=== PATIENT | male | born 1945 | race Caucasian/White ===

== ENCOUNTER 2018-09-07 14:16 | Emergency (ER) | payer MEDICAID, MEDICARE, OTHER ==
[2018-09-07 14:16] VITALS: BMI 29.0
[2018-09-07 14:42] VITALS: TEMP 98.2
[2018-09-07 15:27] LABS: SQUAMOUS EPITHIAL < 1 /hpf (0-5); URINE BACTERIA RARE (<OCC); URINE BILIRUBIN NEGATIVE (NEGATIVE); URINE BLOOD 1+ (NEGATIVE); URINE CLARITY Clear (Clear); URINE COLOR Yellow (YELLOW); URINE GLUCOSE (UA) NORMAL (Normal); URINE LEUKOCYTE ESTERASE NEG Leu/uL (Negative); URINE PROTEIN NEGATIVE (NEGATIVE); URINE UROBILINOGEN NORMAL mg/dL (0.2-1.0)
[2018-09-07 15:40] LABS: BASO % 0.2 % (0.0-2.0); EOS % 0.4 % (0.0-4.0); HEMOGLOBIN 15.4 g/dL (12.0-18.0); LYMPH % 9.6 % (20.0-40.0); MEAN CELL VOLUME 90.9 fL (80.0-94.0); MEAN PLATELET VOLUME 8.9 fL (7.2-11.7); MONO # 0.8 K/uL (0.0-0.8); NEUT # 8.6 K/uL (1.8-7.0); NEUT % 81.8 % (50.0-75.0); PLATELET COUNT 160 K/uL (130-400); RBC 4.98 Mil/uL (4.40-5.90); RED CELL DISTRIBUTION WIDTH 13.5 % (11.5-14.5); WHITE BLOOD COUNT 10.5 K/uL (4.8-10.8)
[2018-09-07 15:51] LABS: ALB/GLOB RATIO 1.5 (1.0-2.1); ALBUMIN 4.7 g/dL (3.5-5.0); ALT/SGPT 24 U/L (21-72); AST/SGOT 25 U/L (17-59); BLOOD UREA NITROGEN 20 mg/dL (9-20); CALCIUM 9.5 mg/dl (8.6-10.4); GFR NON-AFRICAN AMERICAN > 60; LIPASE 114 U/L (23-300)
[2018-09-07 16:18] LABS: LYMPHOCYTE 7 % (20-40); MONOCYTE 6 % (0-10); NEUTROPHIL 87 % (50-75); TOTAL CELLS COUNTED 100
[2018-09-07 16:19] LABS: PLATELET ESTIMATE NORMAL (NORMAL)
--- NOTE | 2018-09-07 16:41 | C.PDOC ---
History Of Present Illness 72 y/o male presents to the ED complaining of suprapubic fullness, urinary frequency, and flank pain. Patient has a PMHx of BPH and elevated PSA. He denies any fever, chills, or other associated symptoms. No other complaints offered. Time Seen by Provider: 09/07/18 14:51 Chief Complaint (Nursing): Male Genitourinary History Per: Patient History/Exam Limitations: no limitations Onset/Duration Of Symptoms: Days Current Symptoms Are (Timing): Still Present Severity: Moderate Associated Symptoms: Urinary Symptoms Past Medical History Reviewed: Historical Data, Nursing Documentation, Vital Signs Vital Signs: Last Vital Signs Temp 98.2 F 09/07/18 14:35 Pulse 86 09/07/18 14:35 Resp 20 09/07/18 14:35 BP 173/100 H 09/07/18 14:35 Pulse Ox 99 09/07/18 14:35 - Medical History PMH: Benign Prostatic Hyperplasia, HTN Denies: Chronic Kidney Disease Other Surgeries: Right leg varicose surgery, Left varicose vein surgery Family History: States: Unknown Family Hx - Social History Hx Alcohol Use: No Hx Substance Use: No Review Of Systems Except As Marked, All Systems Reviewed And Found Negative. Constitutional: Negative for: Fever, Chills Cardiovascular: Negative for: Chest Pain Respiratory: Negative for: Shortness of Breath Gastrointestinal: Positive for: Other (Suprapubic fullness). Negative for: Vomiting, Diarrhea Genitourinary: Positive for: Dysuria, Frequency Musculoskeletal: Positive for: Other (Flank Pain) Skin: Negative for: Rash Neurological: Negative for: Weakness, Numbness Physical Exam - Physical Exam Appears: Non-toxic, No Acute Distress, Other (Elderly male) Skin: Warm, Dry, No Rash Head: Atraumatic, Normacephalic Eye(s): bilateral: Normal Inspection, PERRL, EOMI Neck: Normal ROM Chest: Symmetrical Cardiovascular: Rhythm Regular, No Murmur Respiratory: Normal Breath Sounds, No Accessory Muscle Use Gastrointestinal/Abdominal: Soft, Tenderness (Suprapubic fullness and tenderness, consistent w/ enlarged bladder), No Guarding, No Rebound Back: No CVA Tenderness, No Vertebral Tenderness Extremity: Bilateral: Atraumatic, Normal Color And Temperature Neurological/Psych: Oriented x3, Normal Speech ED Course And Treatment - Laboratory Results Result Diagrams: 09/07/18 15:37 09/07/18 15:37 Lab Results: Troponin I < 0.0120 ng/mL (0.00-0.120) 09/07/18 15:37 Total Bilirubin 0.8 mg/dL (0.2-1.3) 09/07/18 15:37 AST 25 U/L (17-59) 09/07/18 15:37 ALT 24 U/L (21-72) 09/07/18 15:37 Alkaline Phosphatase 90 U/L (38-126) 09/07/18 15:37 Total Protein 7.9 g/dL (6.3-8.3) 09/07/18 15:37 Albumin 4.7 g/dL (3.5-5.0) 09/07/18 15:37 Globulin 3.1 gm/dL (2.2-3.9) 09/07/18 15:37 Albumin/Globulin Ratio 1.5 (1.0-2.1) 09/07/18 15:37 Lipase 114 U/L (23-300) 09/07/18 15:37 Urine Color Yellow (YELLOW) 09/07/18 15:06 Urine Clarity Clear (Clear) 09/07/18 15:06 Urine pH 7.0 (5.0-8.0) 09/07/18 15:06 Ur Specific [place] 1.009 (1.003-1.030) 09/07/18 15:06 Urine Protein Negative mg/dL (NEGATIVE) 09/07/18 15:06 Urine Glucose (UA) Normal mg/dL (Normal) 09/07/18 15:06 Urine Ketones Negative mg/dL (NEGATIVE) 09/07/18 15:06 Urine Blood 1+ (NEGATIVE) H 09/07/18 15:06 Urine Nitrate Negative (NEGATIVE) 09/07/18 15:06 Urine Bilirubin Negative (NEGATIVE) 09/07/18 15:06 Urine Urobilinogen Normal mg/dL (0.2-1.0) 09/07/18 15:06 Ur Leukocyte Esterase Neg Aryan/uL (Negative) 09/07/18 15:06 Urine WBC (Auto) 2 /hpf (0-5) 09/07/18 15:06 Urine RBC (Auto) 6 /hpf (0-3) H 09/07/18 15:06 Ur Squamous Epith Cells < 1 /hpf (0-5) 09/07/18 15:06 Urine Bacteria Rare (<OCC) 09/07/18 15:06 O2 Sat by Pulse Oximetry: 99 (RA) Pulse Ox Interpretation: Normal - Other Rad obstructive series xr X-Ray: Read By Radiologist Interpretation: IMPRESSION: Constipation. Nonobstructive bowel gas pattern. Clear lungs. Reevaluation Time: 16:46 Reassessment Condition: Improved - Physician Consult Information Outcome Of Conversation: [id number]: d/w Dr. Rhodes- pt's Urologist. ok to d/c with leg bag and flomax BID Medical Decision Making Medical Decision Making: acute on chronic urinary retention overflow incontinence Disposition Doctor Will See Patient In The: Office Counseled Patient/Family Regarding: Studies Performed, Diagnosis - Disposition Referrals: [facility] [Outside] [email or web address] ([email or web address]) [facility] [Outside] [facility] [Outside] David Le MD [Staff Provider] - Disposition: HOME/ ROUTINE Disposition Time: 16:48 Condition: GOOD Additional Instructions: sigue con el leg bag puesto [place] gaines Flomax hasta DOS veces al casimiro Llama a Dr. Le para hacer piedad usualmente 1-2 semanas. Prescriptions: Tamsulosin [Flomax] 0.4 mg PO BID #60 cap Instructions: Urrutia Catheter, Male Forms: [facility] ([email or web address]) ([place]an) Print Language: NEPALESE - Clinical Impression Clinical Impression: Urinary retention - Scribe Statement The provider has reviewed the documentation as recorded by the Scribe Kendal Amador Provider Attestation: All medical record entries made by the Jcibe were at my direction and personally dictated by me. I have reviewed the chart and agree that the record accurately reflects my personal performance of the history, physical exam, medical decision making, and the department course for this patient. I have also personally directed, reviewed, and agree with the discharge instructions and disposition.
--- NOTE | 2018-09-07 16:42 | RAD ---
Date of service: 09/07/2018 PROCEDURE: Radiographs of the chest and abdomen (obstructive series) HISTORY: abd pain COMPARISON: No prior. TECHNIQUE: AP radiograph of the chest, with upright and supine radiographs of the abdomen. FINDINGS: CHEST: Lungs: The lungs are well inflated and clear. Cardiovascular: Normal size heart. No pulmonary vascular congestion. No aortic atherosclerotic calcification present Pleura: No pleural fluid. No pneumothorax. Other findings: None. ABDOMEN AND PELVIS: Bowel: There is large amount of stool in the colon. The small bowel loops are normal in caliber. No evidence of mechanical obstruction. Free air: None. Bones: Unremarkable. Other findings: None. IMPRESSION: Constipation. Nonobstructive bowel gas pattern. Clear lungs.
[2018-09-07 17:22] VITALS: BP 143/87; PULSE 82; RESP 18; O2SAT 100
--- NOTE | 2018-09-08 17:26 | CARD ---
APPROVED REPORT Date of service: 09/07/2018 EKG Measurement Heart [id number] <Conclusion> Normal sinus rhythm Biatrial enlargement Left anterior fascicular block Left ventricular hypertrophy with QRS widening Abnormal ECG
== END 2018-09-07 17:25 | disposition home or self-care (01) ==
LOC: C.ER 14:16
DX: R33.9 Retention of urine, unspecified (principal)
CPT/HCPCS: 51702; 74022; 80053; 81001; 83690; 84484; 85025; 93005; 96374; 99285; J1885

== ENCOUNTER 2018-09-11 11:09 | Emergency (ER) | payer MEDICAID | END 2018-09-11 13:21 | disposition home or self-care (01) | LOC: C.ER 11:09 ==

== ENCOUNTER 2018-09-20 10:41 | Emergency (ER) | payer MEDICAID ==
[2018-09-20 10:41] VITALS: BMI 29.0
[2018-09-20 10:57] VITALS: BP 127/82; PULSE 91; RESP 20; TEMP 98.4; O2SAT 99
--- NOTE | 2018-09-20 11:18 | C.PDOC ---
History Of Present Illness 72 year old male with PMHx of BPH and urinary retention status post indwelling catheter for one week presents to the ED complaining of leaky bag for the past few days. States he wrapped the end of the bag using a diaper to collect the urine. Denies any fever, chills, n/v/d, penil discharge, back pain, hematuria, or any other complaints. Time Seen by Provider: 09/20/18 11:05 Chief Complaint (Nursing): Lower Extremity Problem/Injury History Per: Patient History/Exam Limitations: no limitations Onset/Duration Of Symptoms: Days Current Symptoms Are (Timing): Still Present Associated Symptoms: denies: Fever, Chills, Nausea, Vomiting, Diarrhea, Back Pain, Chest Pain Past Medical History Reviewed: Historical Data, Nursing Documentation, Vital Signs Vital Signs: Last Vital Signs Temp 98.4 F 09/20/18 10:48 Pulse 91 H 09/20/18 10:48 Resp 20 09/20/18 10:48 BP 127/82 09/20/18 10:48 Pulse Ox 99 09/20/18 10:48 - Medical History PMH: Benign Prostatic Hyperplasia, HTN Denies: Chronic Kidney Disease Other Surgeries: Hx of surgeries Family History: States: No Known Family Hx - Social History Hx Tobacco Use: No Hx Alcohol Use: No Hx Substance Use: No - Immunization History Hx Tetanus Toxoid Vaccination: No Hx Influenza Vaccination: No Hx Pneumococcal Vaccination: No Review Of Systems Constitutional: Negative for: Fever, Chills Cardiovascular: Negative for: Chest Pain Respiratory: Negative for: Cough, Shortness of Breath Gastrointestinal: Negative for: Nausea, Vomiting, Abdominal Pain, Diarrhea Genitourinary: Negative for: Hematuria, Penile Discharge, Rash, Penile Pain Musculoskeletal: Negative for: Back Pain Skin: Negative for: Rash Neurological: Negative for: Weakness, Numbness Physical Exam - Physical Exam Appears: Non-toxic, No Acute Distress Skin: Warm, Dry Head: Normacephalic Eye(s): bilateral: PERRL, EOMI Oral Mucosa: Moist Neck: Supple Chest: Symmetrical Cardiovascular: Rhythm Regular Respiratory: No Rales, No Rhonchi, No Wheezing Gastrointestinal/Abdominal: Soft, No Tenderness Back: Normal Inspection, No CVA Tenderness Neurological/Psych: Oriented x3, Normal Speech Gait: Steady ED Course And Treatment O2 Sat by Pulse Oximetry: 99 (RA) Pulse Ox Interpretation: Normal Medical Decision Making Medical Decision Making: Plan - New catheter bag placement Bag was placed without difficulty. Patient tolerated procedure well. Instructed to follow up with Dr. Le. Patient verbalizes understanding and is in agreement with plan. Patient is stable for discharge. Disposition Counseled Patient/Family Regarding: Diagnosis, Need For Followup - Disposition Referrals: David Le MD [Staff Provider] - Disposition: HOME/ ROUTINE Disposition Time: 11:15 Condition: STABLE Additional Instructions: Follow up with Dr. Le regarding new catheter bag Continue home meds Return to ED if symptoms worsen Instructions: Urrutia Catheter, Male Forms: [facility] (Upper Sorbian) - Clinical Impression Clinical Impression: Indwelling Urrutia catheter present - PA / TORPEDO SHOOTER / Resident Statement MD/DO has reviewed & agrees with the documentation as recorded. - Scribe Statement The provider has reviewed the documentation as recorded by the Scribe Tiffany Carroll All medical record entries made by the Scribe were at my direction and personally dictated by me. I have reviewed the chart and agree that the record accurately reflects my personal performance of the history, physical exam, medical decision making, and the department course for this patient. I have also personally directed, reviewed, and agree with the discharge instructions and disposition.
== END 2018-09-20 11:43 | disposition home or self-care (01) ==
LOC: C.ER 10:41
DX: Z43.6 Encounter for attention to other artificial openings of urinary tract (principal)

== ENCOUNTER 2018-09-27 17:19 | Emergency (ER) | payer MEDICAID ==
[2018-09-27 17:19] VITALS: BMI 29.0
[2018-09-27 17:26] VITALS: RESP 18
--- NOTE | 2018-09-27 17:48 | C.PDOC ---
History Of Present Illness 72 y/o male with a PMHx of BPH presents to the ED requesting whaley catheter removal. Patient was seen here in the ED for urinary retention on the , , and , and had whaley placement on each visit. Of note, his catheter was removed last week and patient had another recurrent episode of urinary retention yesterday. Patient states he went to [place] ED yesterday and had another catheter placed. He reports it is draining properly but was placed incorrectly, causing him pain. Patient states he needs the catheter removed, and he will return if the retention recurs. Otherwise he denies any fevers, chills, hematuria, abdominal pain, or back pain. <Deepali Butler - Last Filed: 09/27/18 18:56> History Per: Patient History/Exam Limitations: no limitations Onset/Duration Of Symptoms: Days (x 2) Current Symptoms Are (Timing): Still Present <Deepali Butler - Last Filed: 09/27/18 18:56> <Sujatha Mendes - Last Filed: 09/27/18 22:01> Time Seen by Provider: 09/27/18 17:34 Chief Complaint (Nursing): Male Genitourinary Past Medical History Reviewed: Historical Data, Nursing Documentation, Vital Signs Vital Signs: Last Vital Signs Temp 98.6 F 09/27/18 17:22 Pulse 90 09/27/18 17:22 Resp 18 09/27/18 17:22 BP 121/74 09/27/18 17:22 Pulse Ox 97 09/27/18 17:22 - Medical History PMH: Benign Prostatic Hyperplasia, HTN Denies: Chronic Kidney Disease Family History: States: Unknown Family Hx - Social History Hx Tobacco Use: No Hx Alcohol Use: No Hx Substance Use: No - Immunization History Hx Tetanus Toxoid Vaccination: Yes Hx Influenza Vaccination: Yes Hx Pneumococcal Vaccination: Yes <Deepali Butler - Last Filed: 09/27/18 18:56> Vital Signs: Last Vital Signs Temp 98.1 F 09/27/18 20:30 Pulse 84 09/27/18 20:30 Resp 18 09/27/18 20:30 BP 125/73 09/27/18 20:30 Pulse Ox 98 09/27/18 20:30 <Sujatha Mendes - Last Filed: 09/27/18 22:01> Review Of Systems Except As Marked, All Systems Reviewed And Found Negative. Constitutional: Negative for: Fever, Chills Cardiovascular: Negative for: Chest Pain Respiratory: Negative for: Shortness of Breath Gastrointestinal: Negative for: Abdominal Pain Genitourinary: Positive for: Other (Pain at catheter insertion site). Negative for: Hematuria Musculoskeletal: Negative for: Back Pain Skin: Negative for: Rash Neurological: Negative for: Weakness, Numbness <Depeali Butler Last Filed: 09/27/18 18:56> Physical Exam - Physical Exam Appears: Non-toxic, No Acute Distress Skin: Warm, Dry, No Rash Head: Atraumatic, Normacephalic Eye(s): bilateral: Normal Inspection, PERRL, EOMI Oral Mucosa: Moist Neck: Normal ROM Chest: Symmetrical Respiratory: No Accessory Muscle Use, Other (NARD) Gastrointestinal/Abdominal: Soft, No Tenderness, No Distention Extremity: Bilateral: Atraumatic, Normal Color And Temperature Pulses: Left Radial: Normal, Right Radial: Normal Neurological/Psych: Oriented x3, Normal Speech Gait: Steady <Deepali Butler Last Filed: 09/27/18 18:56> ED Course And Treatment O2 Sat by Pulse Oximetry: 97 (RA) Pulse Ox Interpretation: Normal <Deepali Butler Last Filed: 09/27/18 18:56> Progress - Data Reviewed Data Reviewed: Old records <Deepali Butler Last Filed: 09/27/18 18:56> Medical Decision Making Medical Decision Making: Plan: - Whaley catheter removal <Deepali Butler Last Filed: 09/27/18 18:56> Medical Decision Making: This patient was signed out to me at the beginning of my shift. Patient later began complaining of inability to urinate and requested for the whaley catheter to be inserted again. Whaley catheter inserted and patient found immediate relief afterwards. Patient then began complaining of a burning sensation. Patient given Tylenol with relief and will be discharged home. <Sujatha Mendes - Last Filed: 09/27/18 22:01> Disposition - Disposition Disposition Time: 19:00 <Deepali Butler Last Filed: 09/27/18 18:56> Counseled Patient/Family Regarding: Diagnosis, Need For Followup - Disposition Disposition Time: 21:46 <Sujatha Mendes - Last Filed: 09/27/18 22:01> - Disposition Referrals: David Le MD [Staff Provider] - Disposition: HOME/ ROUTINE Condition: IMPROVED Instructions: Urinary Retention (DC) Forms: [facility] ([place] Islander) - Clinical Impression Clinical Impression: Whaley catheter problem, Urinary retention - Scribe Statement The provider has reviewed the documentation as recorded by the Scribe Kendal Amador Provider Attestation: All medical record entries made by the Scribe were at my direction and personally dictated by me. I have reviewed the chart and agree that the record accurately reflects my personal performance of the history, physical exam, medical decision making, and the department course for this patient. I have also personally directed, reviewed, and agree with the discharge instructions and disposition. <Deepali Butler - Last Filed: 09/27/18 18:56> Physician Patient Turnover Patient Signed Over To: Sujatha Mendes Handoff Comments: fu dispo <Deepali Butler - Last Filed: 09/27/18 18:56>
[2018-09-27 21:56] VITALS: BP 146/74; PULSE 80; TEMP 97.9; O2SAT 96
== END 2018-09-27 21:59 | disposition home or self-care (01) ==
LOC: C.ER 17:19
DX: Z46.6 Encounter for fitting and adjustment of urinary device (principal); R33.9 Retention of urine, unspecified

== ENCOUNTER 2018-09-30 17:46 | Emergency (ER) | payer MEDICAID ==
[2018-09-30 17:47] VITALS: BMI 29.0
--- NOTE | 2018-09-30 18:10 | C.PDOC ---
History Of Present Illness 72 y/o male with a PMHx of BPH presents to the ED requesting leg bag change for his catheter. States the current bag is leaking. Patient has no other active complaints. He denies any fever or other complaints. Time Seen by Provider: 09/30/18 17:53 Chief Complaint (Nursing): Male Genitourinary History Per: Patient History/Exam Limitations: no limitations Onset/Duration Of Symptoms: Hrs Current Symptoms Are (Timing): Still Present Past Medical History Reviewed: Historical Data, Nursing Documentation, Vital Signs Vital Signs: Last Vital Signs Temp 98.6 F 09/30/18 18:01 Pulse 72 09/30/18 18:01 Resp 20 09/30/18 18:01 BP 139/78 09/30/18 18:01 Pulse Ox 96 09/30/18 18:01 - Medical History PMH: Benign Prostatic Hyperplasia, HTN Denies: Chronic Kidney Disease Family History: States: Unknown Family Hx - Social History Hx Tobacco Use: No Hx Alcohol Use: No Hx Substance Use: No - Immunization History Hx Tetanus Toxoid Vaccination: Yes Hx Influenza Vaccination: Yes Hx Pneumococcal Vaccination: Yes Review Of Systems Except As Marked, All Systems Reviewed And Found Negative. Constitutional: Negative for: Fever, Chills Gastrointestinal: Negative for: Abdominal Pain Genitourinary: Positive for: Other (Leaking leg bag). Negative for: Hematuria Physical Exam - Physical Exam Appears: Non-toxic, No Acute Distress Skin: Warm, Dry Head: Atraumatic, Normacephalic Eye(s): bilateral: Normal Inspection Neck: Normal ROM Chest: Symmetrical Respiratory: No Accessory Muscle Use, Other (No respiratory distress) Gastrointestinal/Abdominal: Soft, No Distention, Other (Urrutia catheter intact, +leaking noted from leg bag) Extremity: Bilateral: Atraumatic, Normal Color And Temperature Neurological/Psych: Oriented x3 ED Course And Treatment O2 Sat by Pulse Oximetry: 96 (RA) Pulse Ox Interpretation: Normal Progress Note: Leg bag changed by nursing staff. Patient is stable for discharge home. Advised to follow up with urology. Disposition - Disposition Referrals: David Le MD [Staff Provider] - Disposition: HOME/ ROUTINE Disposition Time: 18:09 Condition: STABLE Additional Instructions: Follow up with Urologist within 1-2 days. Return to ED if feel worse. Instructions: How to Care for Your Urrutia Catheter, Male Forms: [facility] ([place]an) - Clinical Impression Clinical Impression: Urrutia catheter problem - PA / READINESS PARAPROFESSIONAL / Resident Statement MD/DO has reviewed & agrees with the documentation as recorded. - Scribe Statement The provider has reviewed the documentation as recorded by the Scribe Kendal Amador All medical record entries made by the Scribe were at my direction and personally dictated by me. I have reviewed the chart and agree that the record accurately reflects my personal performance of the history, physical exam, medical decision making, and the department course for this patient. I have also personally directed, reviewed, and agree with the discharge instructions and disposition.
[2018-09-30 18:11] VITALS: BP 139/78; PULSE 72; RESP 20; TEMP 98.6; O2SAT 96
== END 2018-09-30 18:13 | disposition home or self-care (01) ==
LOC: C.ER 17:46
DX: Z43.6 Encounter for attention to other artificial openings of urinary tract (principal)

== ENCOUNTER 2018-10-10 15:28 | Emergency (ER) | payer MEDICAID ==
[2018-10-10 15:30] VITALS: BMI 29.0
== END 2018-10-10 16:16 | disposition left against medical advice (07) ==
LOC: C.ER 15:28
DX: Z02.89 Encounter for other administrative examinations (principal)

== ENCOUNTER 2018-10-12 10:53 | Outpatient (CLI) | payer MEDICAID | END 2018-10-12 10:54 | disposition home or self-care (01) | LOC: C.RADH 10:53 | DX: Z01.818 Encounter for other preprocedural examination (principal) ==

== ENCOUNTER 2018-11-04 07:09 | Emergency (ER) | payer MEDICAID ==
[2018-11-04 07:09] VITALS: BMI 29.0
[2018-11-04 07:33] VITALS: BP 176/79; PULSE 69; RESP 17; TEMP 97.9; O2SAT 99
--- NOTE | 2018-11-04 08:02 | C.PDOC ---
History Of Present Illness 73 y/o male with whaley catheter for bph for few weeks, scheduled for prostate surgery in 2 weeks, comes to ed because leg bag is cracked at valve and is leaking. no dysuria, no abdominal pain, no fever. Time Seen by Provider: 11/04/18 07:34 Chief Complaint (Nursing): Medical Clearance History Per: Patient History/Exam Limitations: no limitations Onset/Duration Of Symptoms: Days (1) Current Symptoms Are (Timing): Still Present Past Medical History Reviewed: Historical Data, Nursing Documentation, Vital Signs Vital Signs: Last Vital Signs Temp 97.9 F 11/04/18 07:31 Pulse 69 11/04/18 07:31 Resp 17 11/04/18 07:31 BP 176/79 H 11/04/18 07:31 Pulse Ox 99 11/04/18 07:31 Primary Care Provider: David Le - Medical History PMH: Benign Prostatic Hyperplasia, HTN Denies: Chronic Kidney Disease Family History: States: Unknown Family Hx - Social History Hx Tobacco Use: No Hx Alcohol Use: No Hx Substance Use: No - Immunization History Hx Tetanus Toxoid Vaccination: Yes Hx Influenza Vaccination: Yes Hx Pneumococcal Vaccination: Yes Review Of Systems Constitutional: Negative for: Fever, Chills Gastrointestinal: Negative for: Vomiting, Abdominal Pain Genitourinary: Negative for: Dysuria, Hematuria Physical Exam - Physical Exam Appears: Non-toxic, No Acute Distress Skin: Warm, Dry Gastrointestinal/Abdominal: Soft, No Tenderness, No Distention, No Guarding, No Rebound Back: No CVA Tenderness ED Course And Treatment O2 Sat by Pulse Oximetry: 99 Medical Decision Making Medical Decision Making: leg bag changed, abdomen soft, d/c home. pt takes daily bp meds at 11 am Disposition Counseled Patient/Family Regarding: Diagnosis, Need For Followup - Disposition Referrals: David Le MD [Staff Provider] - Disposition: HOME/ ROUTINE Disposition Time: 08:02 Condition: GOOD Additional Instructions: Laina un seguimiento con el Dr. Le segn lo programado. Instructions: How to Care for Your Whaley Catheter, Male Forms: [facility] Inst Belizean, [facility] (Belizean) Print Language: BOLIVIAN - Clinical Impression Clinical Impression: Whaley catheter problem
== END 2018-11-04 08:04 | disposition home or self-care (01) ==
LOC: C.ER 07:09
DX: Z43.6 Encounter for attention to other artificial openings of urinary tract (principal)

== ENCOUNTER 2018-11-27 09:40 | Emergency (ER) | payer MEDICAID | END 2018-11-27 10:33 | disposition home or self-care (01) | LOC: C.ER 09:40 ==